=== PATIENT | male | born 1985 | race Caucasian/White ===

== ENCOUNTER 2022-08-03 15:36 | Emergency (ER) | payer BC, SELFPAY ==
[2022-08-03 15:46] VITALS: BP 144/86; PULSE 81; RESP 16; TEMP 36.6; O2SAT 100
--- NOTE | 2022-08-03 15:58 | ED.URI ---
HPI - URI/Sore Throat General Chief Complaint: Upper Respiratory Infection Stated Complaint: cough,tim Time Seen by Provider: 08/03/22 15:48 Source: patient and RN notes reviewed Mode of arrival: ambulatory Limitations: no limitations History of Present Illness HPI Narrative: Patient presents today with a one-week history of cough, sinus pressure, and nasal congestion. Denies shortness of breath, fever, or any additional symptoms. He has been taking NyQuil and Mucinex without relief. States cough is keeping him awake at night. Denies sick contacts. Cough is occasionally productive. Denies recent antibiotic use. Denies any history of asthma or COPD. He is a nonsmoker. Related Data Allergies Allergy/AdvReac Type Severity Reaction Status Date / Time No Known Allergies Allergy Verified 08/03/22 15:46 Review of Systems Review of Systems: CONSTITUTIONAL: Denies body aches, fever, chills, or sweats. EYES: Denies visual changes, redness, or discharge. ENT: Denies rhinorrhea, sore throat, or otalgia.+ nasal congestion, sinus pressure CARDIOVASCULAR: Denies chest pain, palpitations, or edema. RESPIRATORY: Denies dyspnea.+ cough GASTROINTESTINAL: Denies abdominal pain, nausea, vomiting, or diarrhea. GENITOURINARY: Denies dysuria or hematuria. SKIN: Denies rash, itching, or wounds. MUSCULOSKELETAL: Denies back pain, joint pain, or myalgia. NEUROLOGIC: Denies headache, numbness, tingling, or weakness. PSYCH: Denies depression or anxiety. PMFSH Social History Social History Smoking status: Never smoker Alcohol intake: current Drinks per week: 5 Alcohol use details: Beer and [place] Substance use: never Living arrangements: alone Occupation/Education: occupation Additional occupation/education comments: Physical Therapist Gender identity (if verbalized by the patient): Male Comments At time of signature, I have reviewed and agree with nursing past medical, surgical, social and family history unless otherwise noted. Please see nursing chart for further information. There is no relevant family history pertinent to the presenting complaint Exam Narrative: GENERAL: Well-appearing, well-nourished, and in no acute distress. HEAD: Normocephalic, atraumatic. EYES: EOMI. No redness or drainage. Conjunctivae normal. ENT: Mucous membranes pink and moist. Nares clear. No rhinorrhea. TMs normal bilaterally. Throat normal. Uvula midline. NECK: Normal AROM. Supple. No lymphadenopathy. CHEST: No respiratory distress. Clear to auscultation. HEART: Regular rate and rhythm. No murmur appreciated. EXTREMITIES: Normal range of motion. No edema. SKIN: Warm, dry, no rash. Capillary refill normal. Normal skin turgor. NEURO: No focal deficits. Alert and oriented x3. Gait steady. PSYCH: Normal affect. No signs of depression or anxiety. Course Course Level of Care: Express Care Visit Vital Signs Vital signs: Vital Signs Temperature 97.8 F 08/03/22 15:46 Pulse Rate 81 08/03/22 15:46 Respiratory Rate 16 08/03/22 15:46 Blood Pressure 144/86 H 08/03/22 15:46 Pulse Oximetry 100 08/03/22 15:46 Temperature 97.8 F 08/03/22 15:46 Pulse Rate 81 08/03/22 15:46 Respiratory Rate 16 08/03/22 15:46 Blood Pressure 144/86 H 08/03/22 15:46 Pulse Oximetry 100 08/03/22 15:46 Reviewed. Pt has been instructed to follow up with his PCP regarding his elevated blood pressure today. MDM - URI/Sore Throat MDM Narrative Medical decision making narrative: Will treat patient's symptoms with amoxicillin and prednisone. Will also give him Cheratussin for nighttime use. Anticipatory guidance given. Differential Diagnosis Differential diagnosis: Likely upper respiratory infection, sinusitis, viral infection, bronchitis and other (Pneumonia) Critical Care Time Critical Care Time Critical Care Time: No Discharge Plan Discharge
--- NOTE | 2022-08-03 16:17 | ED_ITS ---
HPI - URI/Sore Throat General Chief Complaint: Upper Respiratory Infection Stated Complaint: cough,tim Time Seen by Provider: 08/03/22 15:48 Source: patient and RN notes reviewed Mode of arrival: ambulatory Limitations: no limitations History of Present Illness HPI Narrative: Patient presents today complaining of a 3 day history of nasal congestion with sinus pressure, dry cough, postnasal drip, fatigue. 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 Gender identity (if verbalized by the patient): Male Course Vital Signs Vital signs: Vital Signs Temperature 97.8 F 08/03/22 15:46 Pulse Rate 81 08/03/22 15:46 Respiratory Rate 16 08/03/22 15:46 Blood Pressure 144/86 H 08/03/22 15:46 Pulse Oximetry 100 08/03/22 15:46 Temperature 97.8 F 08/03/22 15:46 Pulse Rate 81 08/03/22 15:46 Respiratory Rate 16 08/03/22 15:46 Blood Pressure 144/86 H 08/03/22 15:46 Pulse Oximetry 100 08/03/22 15:46 Discharge Plan Discharge Clinical Impression: Bronchitis Upper respiratory infection Qualifiers: URI type: unspecified URI Qualified Code(s): J06.9 - Acute upper respiratory infection, unspecified Patient Disposition: Home, Self-Care Condition: Stable Instructions: Antibiotic Form, Acute Bronchitis (ED) Additional Instructions: Please take the amoxicillin and prednisone as directed until gone. Take the cheratussin at night if needed for cough. Do not drive within 6 hours of taking the Cheratussin as it can make you drowsy. He may continue Mucinex during the day if needed. Follow-up with your PCP in 3-4 days if symptoms are not improving. Your blood pressure was elevated above 120/80 today at Urgent Care. This puts you above the threshold for follow up. Please schedule a followup visit with your personal physician as soon as possible, for further evaluation and treatment. Even blood pressure exceeding 120/80 may indicate pre-hypertension. Prescriptions: New amoxicillin 875 mg tablet 875 mg PO Q12H 10 Days Qty: 20 0RF prednisone 50 mg tablet 50 mg PO DAILY 5 Days Qty: 5 0RF codeine-guaifenesin 10-100 mg/5 mL liquid 10 ml PO HS PRN (Reason: cough) Qty: 120 0RF Follow-up/Referrals: Christ Bermudez DO [Primary Care Provider] - Time of Disposition: 16:03
== END 2022-08-03 16:15 | disposition home or self-care (01) ==
PROVIDERS: Emergency Provider Nurse Practitioner; PCP Family Medicine
DX: J40 Bronchitis, not specified as acute or chronic (principal); J06.9 Acute upper respiratory infection, unspecified
CPT/HCPCS: 99213; G0463